=== PATIENT | female | born 2000 | race Caucasian/White ===

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

== ENCOUNTER 2022-03-15 23:39 | Emergency (ER) | payer BC, OTHER ==
[2022-03-16 00:50] LABS: HEMOGLOBIN 11.2 gm/dl (12.3-15.3); RED BLOOD COUNT 4.38 M/UL (4.00-5.10); WHITE BLOOD COUNT 8.7 K/UL (4.5-11.0)
[2022-03-16 01:06] LABS: BUN/CREATININE RATIO 12 (0-10)
== END 2022-03-16 02:50 | disposition home or self-care (01) ==
LOC: ER1 23:39
PROVIDERS: Family Medicine
DX: R07.9 Chest pain, unspecified (principal); R10.13 Epigastric pain; F41.0 Panic disorder [episodic paroxysmal anxiety]
CPT/HCPCS: 80053; 81001; 82150; 82550; 82553; 83690; 84484; 84703; 85025; 93005; 99284